=== PATIENT | female | born 1970 | race Hispanic/Latino ===

== ENCOUNTER 2017-01-30 06:04 | Day surgery (SDC) | payer BC ==
[2017-01-30] MEDS ORDERED: NACL BACTERIOSTATIC INFILTRATI ONE (06:27)
--- NOTE | 2017-01-30 06:51 | Anesthesia Consultation ---
Anesthesia Consult and Med Hx Date of service: 01/30/17 - Airway Anesthetic Teeth Evaluation: Good ROM Head & Neck: Adequate Mental/Hyoid Distance: Adequate Mallampati Class: Class II Intubation Access Assessment: Probably Good - Pulmonary Exam CTA: Yes - Cardiac Exam Cardiac Exam: RRR - Pre-Operative Health Status ASA Pre-Surgery Classification: ASA1 Proposed Anesthetic Plan: MAC - Pulmonary Hx Smoking: Yes (former, quit 2 yrs ago) Hx Asthma: No SOB: No Hx Pneumonia: Yes (10/2016) - Cardiovascular System Hx Hypertension: No Hx Coronary Artery Disease: No - Central Nervous System Hx Seizures: No CVA: No Hx Psychiatric Problems: Yes (ANXIETY) - Endocrine Hx Renal Disease: No Hx Liver Disease: No Hx Hypothyroidism: No - Other Systems Hx Alcohol Use: Yes (occassional) Hx Substance Use: No Hx Cancer: No Hx Obesity: No - Additional Comments Anesthesia Medical History Comments: PONV
--- NOTE | 2017-01-30 06:51 | Anesthesia Day of Surgery ---
Anesthesia Day of Surgery - Day of Surgery Patient Examined: Yes Patient H&P Reviewed: Yes Patient is NPO: Yes
[2017-01-30] MEDS ORDERED: XYLOCAINE 1%/ EPI 1:100,000 INFILTRATI ONE ×2 (06:56→07:40)
[2017-01-30] MEDS ORDERED: MARCAINE 0.25% INFILTRATI ONE ×2 (06:57→07:40)
[2017-01-30] MEDS ORDERED: TRANSDERM-SCOP TD NR (07:00)
[2017-01-30] MEDS ORDERED: PEPCID PO NR (07:00)
[2017-01-30] MEDS ORDERED: REGLAN PO NR (07:00)
[2017-01-30] MEDS ORDERED: VERSED IV NR (07:00)
[2017-01-30] MEDS ORDERED: LACTATED RINGERS 1,000 ML IV SCH (07:00)
[2017-01-30] MEDS ORDERED: DILAUDID ONE (07:12)
[2017-01-30] MEDS ORDERED: DIPRIVAN 10 MG/ML IV ONE ×3 (07:12→07:58)
[2017-01-30] MEDS ORDERED: XYLOCAINE MPF 2% ONE (07:13)
[2017-01-30] MEDS ORDERED: DILAUDID IV PRN (07:31)
[2017-01-30] MEDS ORDERED: ZOFRAN IV PRN (07:31)
[2017-01-30] MEDS ORDERED: NORCO 5/325 PO PRN (07:31)
[2017-01-30] MEDS ORDERED: VERSED ONE (07:37)
[2017-01-30] MEDS ORDERED: DECADRON ONE (07:54)
[2017-01-30] MEDS ORDERED: ANCEF/STERILE WATER 2 GM/20 ML IV NR (08:00)
[2017-01-30] MEDS ORDERED: NACL 0.9% IR ONE (08:00)
--- NOTE | 2017-01-30 08:24 | Post Operative Note ---
Pre-op diagnosis: Exostosis right foot Post-op diagnosis: same (With Soft tissue mass) Findings: See operative report. Procedure: 1. Exostectomy right foot. 2. Excisional biopsy soft tissue mass right side. Anesthesia: MAC Surgeon: DEBORAH MARIE Estimated blood loss: minimal Pathology: list (Soft tissue mass) Specimen disposition: to lab Condition: stable Disposition: same day
--- NOTE | 2017-01-30 08:25 | Discharge Summary ---
Short Stay Discharge Plan Activity: no restrictions Weight Bearing Status: Weight Bear as Tolerated Diet: regular Wound: keep clean and dry Follow up with: FLORENTINO MICHELLE MD [Primary Care Provider] - 7 Days
[2017-01-30 09:20] VITALS: BP 98/65
--- NOTE | 2017-01-30 10:22 | Operative Report ---
SURGEON: Lyndon Bradley DPM. PRINCIPAL ARCHITECTURAL FIRM: None. PREOPERATIVE DIAGNOSIS: Painful exostosis, right foot. POSTOPERATIVE DIAGNOSES: 1. Painful exostosis, right foot. 2. Soft tissue mass, right foot. ANESTHESIA: Monitored anesthesia care with local anesthetic consisting of 1% lidocaine with epinephrine and 0.25% Marcaine plain 50:50 mixture x 5 mL. PROCEDURE PERFORMED: Exostectomy, right foot with biopsy of soft tissue mass. ESTIMATED BLOOD LOSS: Less than 5 mL. MATERIALS: None. PATHOLOGY: Soft tissue mass sent for path. COMPLICATIONS: None. OPERATIVE SUMMARY: On this date, the patient was deemed appropriate surgical candidate, brought to the operating room and placed on the operating table in supine position. Following induction of adequate intravenous anesthesia, a field block was performed about the local dorsal mid foot. The right foot, ankle and leg were prepped and draped in the usual sterile fashion. Following exsanguination, tourniquet was inflated and the following procedure was then carried out. EXOSTECTOMY, RIGHT FOOT WITH EXCISION AND BIOPSY OF SOFT TISSUE MASS Attention was directed to the dorsal aspect of the second metatarsal-tarsal articulation where a 2.5 cm linear incision was placed overlying this area. Dissection was carried through the skin layer down to the level of the superficial fascia with care to retract neurovascular structures. Use of electrocautery deemed necessary for surgical hemostasis. Dissection was then carried through the deep fascia. At the time of the incision of the deep fascia, mass herniated through. I went ahead and dissected down to this mass, and it seemed to emanate from the extensor slips from the extensor digitorum brevis muscle belly. I went ahead and removed this. It was soft and rubbery and ____ in appearance. The mass was excised and all its margins and sent for pathologic diagnosis. We then retracted the tendons out of the way. An incision was placed overlying the periosteum. Periosteum was then reflected from the dorsal tarsometatarsal articulation ____. Significant spurring was noted on the cuneiform side and therefore an osteotome and rasp was used to remove this edge and recontoured size to be a very smooth and flush. The wound was flushed with normal saline. Excellent removal of the mass and recontouring was appreciated. At this time, closure was carried out with a deep Vicryl suture to repair the deep fascial layer. Superficial fascia was closed with 4-0 absorbable suture in a running subcutaneous fashion followed by 5-0 absorbable suture in running intradermal fashion and closed the skin. Betadine was applied followed by Steri-Strips. Dry sterile dressing was then applied to the right foot. The tourniquet was deflated and normal capillary refill returned to all digits. The patient tolerated both procedure and anesthesia well without any complications. Vital signs were stable throughout. She will be discharged home with going instructions, keep the dressings on, ambulate with an Aircast and follow up in the office in 1 week. JOB# [id number] VINAY/DAVID
--- NOTE | 2017-01-30 12:45 | Post Anesthesia Evaluation ---
- Post Anesthesia Evaluation Patient Participated: Yes Airway Patent: Yes Stable Respiratory Function: Yes Temp > 96.8F: Yes Pain Manageable: Yes Adequeate Hydration: Yes Anesthesia Complications: No Block Receding Appropriately: Not Applicable
== END 2017-01-30 09:40 | disposition home or self-care (01) ==
LOC: OR 06:04
PROVIDERS: ATTEND Podiatrist Foot & Ankle Surgery
DX: M89.8X7 Other specified disorders of bone, ankle and foot (principal); F41.9 Anxiety disorder, unspecified; Z87.891 Personal history of nicotine dependence; Z87.01 Personal history of pneumonia (recurrent); Z72.89 Other problems related to lifestyle
CPT/HCPCS: 28039; 88305; 88341; 88342; J0690; J1100; J1170; J2250; J2405; J2704; J7120; 88307